=== PATIENT | male | born 1930 | race Caucasian/White ===

== ENCOUNTER 2020-01-06 07:36 | Day surgery (SDC) | payer OTHER ==
[2020-01-04 15:40] VITALS: BMI 25.8
[2020-01-06] MEDS ORDERED: LIDOCAINE HCL/PF 2% SDV 5ML VIAL ONE (08:22)
[2020-01-06] MEDS ORDERED: MIDAZOLAM HCL 2 MG/2 ML SINGLE DOSE VIAL ONE (08:22)
[2020-01-06] MEDS ORDERED: PROPOFOL 20 ML ONE (08:22)
[2020-01-06] MEDS ORDERED: EPHEDRINE SULFATE/0.9% NACL/PF 50 MG/10 ML SYRINGE NR ONE (08:51)
[2020-01-06] MEDS ORDERED: SUCCINYLCHOLINE CHLORIDE 200 MG/10 ML SYRINGE ONE (08:51)
[2020-01-06] MEDS ORDERED: LIDOCAINE HCL 2% (20ML MULTI-DOSE VIAL) ONE (09:28)
[2020-01-06] MEDS ORDERED: LIDOCAINE HCL 2% (50ML VIAL) INF ONE (09:40)
[2020-01-06 11:15] VITALS: TEMP 97.5
[2020-01-06 11:20] VITALS: BP 132/70; PULSE 60
== END 2020-01-06 10:45 | disposition home or self-care (01) ==
LOC: FASU 07:36
PROVIDERS: ATTEND Orthopaedic Surgery Hand Surgery
PROC: 01N50ZZ Release Median Nerve, Open Approach (ICD-10-PCS; principal; 2020-01-06 09:55)
DX: G56.01 Carpal tunnel syndrome, right upper limb (principal)

== ENCOUNTER 2020-01-27 07:57 | Day surgery (SDC) | payer OTHER ==
[2020-01-25 17:56] VITALS: BMI 26.6
[2020-01-27] MEDS ORDERED: MIDAZOLAM HCL 2 MG/2 ML SINGLE DOSE VIAL ONE (09:43)
[2020-01-27] MEDS ORDERED: PROPOFOL 20 ML ONE (09:43)
[2020-01-27] MEDS ORDERED: LIDOCAINE HCL 2% (50ML VIAL) INF ONE (10:17)
[2020-01-27 11:00] VITALS: TEMP 97.7
[2020-01-27 11:31] VITALS: BP 121/60; PULSE 61
== END 2020-01-27 11:30 | disposition home or self-care (01) ==
LOC: FASU 07:57
PROVIDERS: ATTEND Orthopaedic Surgery Hand Surgery
PROC: 01N50ZZ Release Median Nerve, Open Approach (ICD-10-PCS; principal; 2020-01-27 10:25)
DX: G56.02 Carpal tunnel syndrome, left upper limb (principal)